=== PATIENT | female | born 1995 | race Caucasian/White ===

== ENCOUNTER 2019-02-05 12:43 | Emergency (ER) | payer OTHER ==
[~2019-02-05] VITALS: Ht 167.6 cm; Wt 63.6 kg
[2019-02-05 12:48] VITALS: TEMP 99.3
[2019-02-05] MEDS ORDERED: SINEQUAN 2525 MG/CAP PO (12:58)
[2019-02-05] MEDS ORDERED: TYLENOL 500MG500 MG PO (12:59)
[2019-02-05] MEDS ORDERED: PERCOCET 325 MG1 TA2 PO (16:12)
[2019-02-05 17:04] VITALS: BP 104/69; PULSE 87
== END 2019-02-05 16:55 | disposition home or self-care (01) ==
LOC: COL.ER 12:43
DX: S43.014A Anterior dislocation of right humerus, initial encounter (principal); M24.411 Recurrent dislocation, right shoulder; Z90.49 Acquired absence of other specified parts of digestive tract; Z90.89 Acquired absence of other organs; Z88.0 Allergy status to penicillin; Z88.5 Allergy status to narcotic agent; X50.0XXA Overexertion from strenuous movement or load, initial encounter; Y92.009 Unspecified place in unspecified non-institutional (private) residence as the place of occurrence of the external cause
CPT/HCPCS: J2270; J2704

== ENCOUNTER 2019-07-01 12:45 | Emergency (ER) | payer OTHER ==
[~2019-07-01] VITALS: Ht 167.6 cm; Wt 71.8 kg
[~2019-07-01 12:45] MED LIST: PERCOCET 325 MG1 TA2 PO; SINEQUAN 2525 MG/CAP PO; TYLENOL 500MG500 MG PO
[2019-07-01 16:13] VITALS: TEMP 98.9
[2019-07-01] MEDS ORDERED: ULTRAM 50MG TAB50 MG PO (17:29)
[2019-07-01 17:44] VITALS: BP 129/78; PULSE 87
== END 2019-07-01 17:47 | disposition home or self-care (01) ==
LOC: COL.ER 12:45
DX: M24.411 Recurrent dislocation, right shoulder (principal)
CPT/HCPCS: J1170; J2060; J2270; J2704; J7030

== ENCOUNTER → 2020-02-01 | Outpatient (CLI) | payer OTHER ==
[~2020-02-01] MED LIST changes: +ULTRAM 50MG TAB50 MG PO
== END ==
LOC: COL.RAD 01-31 13:30
DX: M25.511 Pain in right shoulder (principal)

== ENCOUNTER 2021-10-03 16:48 | Emergency (ER) | payer BC ==
[~2021-10-03] VITALS: Ht 167.6 cm; Wt 70.0 kg
[2021-10-03 17:02] VITALS: TEMP 98.1
[2021-10-03 20:14] VITALS: BP 126/78; PULSE 81
== END 2021-10-03 20:22 | disposition home or self-care (01) ==
LOC: COL.ER 16:48
DX: S49.91XA Unspecified injury of right shoulder and upper arm, initial encounter (principal); G89.29 Other chronic pain; Z79.891 Long term (current) use of opiate analgesic; X50.9XXA Other and unspecified overexertion or strenuous movements or postures, initial encounter; Y92.531 Health care provider office as the place of occurrence of the external cause
CPT/HCPCS: J1170

== ENCOUNTER → 2021-10-21 | Outpatient (CLI) | payer BC | LOC: COL.RAD 08:30 | DX: M25.511 Pain in right shoulder (principal) ==